=== PATIENT | female | born 1950 | race Caucasian/White ===

== ENCOUNTER 2017-12-06 21:49 | Observation (INO) | payer OTHER ==
[~2017-12-06] VITALS: Ht 167.6 cm; Wt 79.1 kg
[2017-12-06] MEDS ORDERED: METOPROLOL TARTRATE INJ 1 MG/ML VIAL IV STA (22:12)
[2017-12-06] MEDS ORDERED: ASPIRIN 81 MG CHEW TAB PO STA (22:18)
[2017-12-06] MEDS ORDERED: ASPIR 8181 MG PO (22:37)
[2017-12-06] MEDS ORDERED: LEVOTHYROXINE50 MCG PO (22:37)
[2017-12-06] MEDS ORDERED: METOPROLOL TART25 MG PO (22:37)
[2017-12-06] MEDS ORDERED: ASPIRIN 81 MG CHEW TAB PO ONE (23:00)
[2017-12-06] MEDS ORDERED: SODIUM CHLORIDE FLUSH 10 ML SYR INJ PRN (23:00)
[2017-12-06] MEDS ORDERED: ONDANSETRON HCL INJ 2 MG/ML VIAL IV PRN (23:00)
[2017-12-07 00:30] VITALS: BP 122/77
[2017-12-07 01:28] VITALS: BP 122/77
[2017-12-07 01:30] LABS: CREATINE KINASE 79 IU/L (29-168)
[2017-12-07 06:03] VITALS: BP 128/76
[2017-12-07 06:57] LABS: CREATINE KINASE MB 1.4 ng/mL (0-5.0)
[2017-12-07 07:43] LABS: CHOL/HDL RATIO 2.4 (3.0-3.6)
[2017-12-07 07:57] VITALS: BP 128/76
[2017-12-07] MEDS ORDERED: ASPIRIN 81 MG ENTERIC COATED PO SCH (09:00)
[2017-12-07 10:51] VITALS: BP 113/75
--- NOTE | 2017-12-07 12:49 | History and Physical ---
OBSERVATION CHIEF COMPLAINT: PAF. A 66-year-old female came in with paroxysmal atrial fibrillation. Patient has hypothyroidism, but taking only levothyroxine 25 mcg a day. She is also taking metoprolol succinate 25 mg daily. Apparently, she had an episode where her heart rate went up to 118 with atrial fibrillation history. Patient is on baby aspirin. She did have complete cardiac workup a few years ago. The patient is otherwise stable. Cardiac enzyme has been negative. Physical examination is unremarkable. Lab work shows no significant abnormality. The patient will go home today. She will continue with her medications at home. I suggest that if the atrial fibrillation is rapid, she may take an extra dose of metoprolol succinate. The patient may follow up with her packager and strapper, Dr. Schaefer, on a routine basis. Patient is stable and discharged home today. Job#: [id number] DANA
--- NOTE | 2017-12-07 16:20 | Discharge Summary ---
The patient was briefly hospitalized in observation. FINAL DIAGNOSES 1. Paroxysmal atrial fibrillation. 2. Baseline paroxysmal atrial fibrillation. 3. Hypothyroidism. SUMMARY: Patient had a rapid heart rate, atrial fibrillation, but resolved in the emergency room at [facility] outpatient urgent care. Patient was transferred here for cardiac enzyme monitoring. Cardiac enzymes have been negative. Lab work otherwise unremarkable. Patient will go home today. Follow up with her traffic expert, Dr. Schaefer. She will continue home medications. Job#: [id number] DANA
== END 2017-12-07 13:07 | disposition home or self-care (01) ==
LOC: FSED 21:49 → ERHOLD 23:46 → MED/SURG2 23:57
PROVIDERS: ADMIT Internal Medicine; ATTEND Internal Medicine
DX: I48.0 Paroxysmal atrial fibrillation (principal); E03.9 Hypothyroidism, unspecified
CPT/HCPCS: 36415; 80061; 82550; 82553; 84484; 93005 ×2; 99284; G0378 ×2

== ENCOUNTER 2022-03-11 17:51 | Emergency (ER) | payer MEDICARE, OTHER ==
[~2022-03-11] VITALS: Ht 167.6 cm; Wt 86.3 kg
[~2022-03-11 17:51] MED LIST: ASPIR 8181 MG PO; LEVOTHYROXINE50 MCG PO; METOPROLOL TART25 MG PO
[2022-03-11] MEDS ORDERED: TETANUS/DIPHTHERIA TOX ADULT 0.5 ML SYR IM STA (18:38)
[2022-03-11] MEDS ORDERED: LOSARTAN POTASS25 MG PO (18:39)
[2022-03-11] MEDS ORDERED: MUPIROCIN 2% OINT 22 GM TUBE TOP ONE (18:45)
[2022-03-11] MEDS ORDERED: ACETAMINOPHEN500 MG PO (18:49)
[2022-03-11] MEDS ORDERED: IBUPROFEN200 MG PO (18:49)
[2022-03-11] MEDS ORDERED: BACITRACIN ZINC 0.9GM TP ONE (19:01)
[2022-03-11] MEDS ORDERED: TETANUS/DIPHTHERIA TOX ADULT 0.5 ML SYR ONE (19:01)
== END 2022-03-11 19:11 | disposition home or self-care (01) ==
LOC: FSED 18:00
DX: S40.811A Abrasion of right upper arm, initial encounter (principal); V43.62XA Car passenger injured in collision with other type car in traffic accident, initial encounter; Y92.488 Other paved roadways as the place of occurrence of the external cause; I10 Essential (primary) hypertension; E03.9 Hypothyroidism, unspecified
CPT/HCPCS: 90471; 90714; 99283